=== PATIENT | female | born 2005 | race Hispanic/Latino ===

== ENCOUNTER 2024-08-31 11:23 | Emergency (ER) | payer MEDICARE, SELFPAY ==
[2024-08-31 11:29] VITALS: BP 133/88
--- NOTE | 2024-08-31 12:21 | ED.GENMED ---
History of Present Illness
General
Chief Complaint: Problems
Source: patient and other (Family member sign language interpreter)
Exam Limitations: none
Time Seen by Provider: 08/31/24 12:20
Nursing documentation reviewed up to this point in time: agreed with
History of Present Illness
History of Present Illness:
18-year-old [place] Citizen only speaking female who is obviously (appears to be about 7 or 8 months by the side of her belly) is here because she wants to know how far along she is. She has no PCP or signals collector/analyst. She has had no abdominal pain,
no vaginal bleeding or discharge.
She has given in the past and has a 2-year-old with her.
She does not know when her last period was
She has no significant past medical history
Past History
Past History
ED Past Medical History: None
ED Past Surgical History: None
Social History
Tobacco: Non-smoker
Alcohol: None
Living: with family
Employment: Not employed
Review of Systems
Review of Systems
Allergies reviewed?: Yes
All Other Systems: ROS reviewed and negative except as documented in HPI and ROS
ABD/GI: Reports other (Abdomen appears to be 7 or 8-month )
: Denies bleeding or discharge
Phy Exam
Physical Exam
Physical Exam:
GENERAL: No acute distress. A&Ox3.
CONSTITUTIONAL: Afebrile.
RESPIRATORY: Regular respirations, nonlabored, lungs clear.
CARDIOVASCULAR: Regular rate and rhythm, no murmurs, no rubs.
GI: Belly appears to be the size of a 7 to 8-month woman, nontender, normal BS
MUSCULOSKELETAL: Moves with ease. Well perfused.
SKIN: Warm, dry, pink
PSYCH: Normal mood and affect. Well kept, interactive and appropriate
NEUROLOGIC: Awake, alert and oriented. No focal neurological deficits
Course
Vital Signs
Initial and Last Documented VS:
Initial Vital Signs
Temp Pulse Resp BP Pulse Ox
98.2 F 107 18 133/88 99
08/31/24 11:29 08/31/24 11:29 08/31/24 11:29 08/31/24 11:29 08/31/24 11:29
Last Documented Vital Signs
Temp Pulse Resp BP Pulse Ox
98.2 F 107 18 133/88 99
08/31/24 11:29 08/31/24 11:29 08/31/24 11:29 08/31/24 11:29 08/31/24 11:29
Information
Weeks gestation: N/A
Location: N/A
MDM/Problems Addressed
Differential Diagnosis Includes:
normal intrauterine
MDM/Problems Addressed:
18-year-old [place] Citizen only speaking female who is obviously (appears to be about 7 or 8 months by the side of her belly) is here because she wants to know how far along she is. She has no PCP or signals collector/analyst. She has had no abdominal pain,
no vaginal bleeding or discharge.
She has given in the past and has a 2-year-old with her.
She does not know when her last period was
She has no significant past medical history
She feels the baby move.
No pain, discharge or sign of labor.
She needs care.
Patient personally escorted to the [facility] clinic by this examiner.
She spoke with someone there and was given an application to fill out.
She knows to return here if signs of delivery
*Critical Care Note
Total Time (30-74mins, 75-104mins- exclusive of procedures): Not Applicable
ED Attending Note
-
Portions of this chart may have been created with voice recognition software.� Occasional wrong word or��sound alike� substitutions may have occurred due to the inherent limitations of voice recognition software.
Discharge Plan
Departure
Patient Disposition: Home (Routine Discharge)
Date of Disposition: 08/31/24
Time of Disposition: 12:25
Patient with high blood pressure during this ER visit?: No
Condition: Good
Discharge Problem:
Prescriptions:
No Action
folic acid 400 mcg Tablet
0.4 mg PO DAILY
prenat.vits,ino,tys-rlku-pnkjg Tablet
1 tab PO DAILY
acetaminophen 325 mg Tablet
650 mg PO Q4HPRN PRN (Reason: mild pain) Qty: 0 0RF
ibuprofen 600 mg Tablet
600 mg PO Q6HPRN PRN (Reason: moderate pain/cramps) Qty: 0 0RF
Referrals:
Carlota Kori [facility] [Other] - Next open appointment
NONE,* [Family Provider] -
Activity Restrictions/Additional Instructions:
As we discussed, since you know you are and by the size of your belly probably 7-8 months, you need Obstetric care.
There is nothing to do here in the Emergency Department
Go to the [facility]
Interventions
Interventions:
*Risk Screen - Suicide Last Done: 08/31/24 12:00
*General Assessment Last Done: 08/31/24 11:29
*Neglect/Abuse Screening Last Done: 08/31/24 12:00
ED- Fall Risk Assessment Last Done: 08/31/24 12:00
*Nursing Disposition Last Done: 08/31/24 12:32
ED-Female Genitourinary Assessment Last Done: 08/31/24 12:00
Discharge Date and Time
Discharge Date/Time: 08/31/24 12:33
Print Language: KYRGYZ
== END 2024-08-31 12:33 | disposition home or self-care (01) ==
LOC: EMR 11:23
PROVIDERS: EMERGENCY PHYSICIAN Emergency Medicine
DX: Z34.83 Encounter for supervision of other normal pregnancy, third trimester (principal); Z3A.00 Weeks of gestation of pregnancy not specified
CPT/HCPCS: 99281

== ENCOUNTER 2024-09-20 00:33 | Observation (INO) | payer SELFPAY ==
[2024-09-20 00:52] VITALS: BP 132/76; BMI 28.9
[2024-09-20 01:29] LABS: Urine Albumin Negative (Neg - Trace); Urine Bilirubin Negative (Negative); Urine Character Clear (Clear); Urine Color Yellow; Urine Glucose Negative (Negative); Urine Ketone Negative (Negative); Urine Leukocyte Negative (Negative); Urine Nitrite Negative (Negative); Urine Occult Blood Negative (Negative); Urine Specific Gravity 1.015 (<1.030); Urine Urobilinogen Negative (Neg - 1+)
[2024-09-20 01:39] LABS: % Basophils 0.2 % (0-2); % Eosinophils 3.5 % (0-6); % Immature Granulocytes 0.7 % (0-0.5); % Lymphocytes 28.7 % (20.5-51.1); % Monocytes 5.3 % (1.7-9.3); % Neutrophils 61.6 % (42.2-75.2); Absolute Eosinophils 0.3 10^3/uL (0-0.7); Absolute Immature Granulocytes 0.1 10^3/uL (0-0.05); Absolute Lymphocytes 2.5 10^3/uL (1.2-3.4); Absolute Monocytes 0.5 10^3/uL (0.1-0.6); Absolute Neutrophils 5.3 10^3/uL (1.4-6.5); Hematocrit 26.7 % (37.0-47.0); Mean Corpuscular Hgb 21.3 pg (27.0-31.0); Nucleated Red Blood Cells % 0.2 %; Platelet Count 245 10^3/uL (130-400); Red Blood Cell Count 3.76 10^6/uL (4.20-5.40); Red Cell Dist. Width 16.4 % (11.5-14.5); White Blood Cell Count 8.7 10^3/uL (4.8-10.8)
[2024-09-20 01:43] LABS: ALT (SGPT) 11 U/L (0-35); AST (SGOT) 20 U/L (14-36); Albumin 3.9 g/dl (3.5-5.0); Alkaline Phosphatase 209 U/L (38-126); Blood Urea Nitrogen 10 mg/dl (7-17); Carbon Dioxide 18 mmol/L (22-30); Chloride 106 mmol/L (98-107); Estimated Creatinine Clearance > 125 ml/min; Glucose 103 mg/dl (70-99); Potassium 4.2 mmol/L (3.5-5.1); Sodium 137 mmol/L (135-145); Total Bilirubin 0.1 mg/dl (0.2-1.3); eGFR > 60.00
[2024-09-20] MEDS: LR 1000 IV (01:46)
[2024-09-20 02:07] LABS: Amphetamines Negative (Negative); Barbiturates Negative (Negative); Benzodiazepines Negative (Negative); Buprenorphine Negative (Negative); Cocaine Negative (Negative); Marijuana Negative (Negative); Methadone Negative (Negative); Methamphetamines Negative (Negative); Opiates Negative (Negative); Phencyclidine Negative (Negative); Tricyclic Antidepressants Negative (Negative)
[2024-09-20 02:37] LABS: Hepatitis B Surface Antigen Negative (Negative)
[2024-09-20 02:44] LABS: Rubella Positive
[2024-09-20 02:46] LABS: HIV Combo Negative (Negative)
[2024-09-20 02:54] LABS: Hepatitis C Antibody Negative (Negative)
[2024-09-20 08:45] LABS: 1 Hour after 50gm 89 mg/dl
[2024-09-20] MEDS: PRENATAL PLUS 1 TABLET PO (08:54)
[2024-09-20] MEDS: AFLURIA (36 mos+) 2024-2025 FORMULA 0.5 ML IM (08:55)
[2024-09-20] MEDS: ADACEL 0.5 ML IM (08:56)
--- NOTE | 2024-09-20 10:10 | CM ---
Pt presented to [facility] as r/o labor. Plan - for discharge today
CM consult - pt does not have supplies for infant
CM met with pt using retail special event associate - Lamont [phone]
Pt reports she lives in an apartment at listed address with her boyfriend, uncle and 19 month old daughter Coral Louis
Direct Care Provider for 19 month old. Boyfriend main support
Acknowledges No PNC - unsure of where to obtain care. Discussed importance of PNC
Given information in Japanese for [facility] Maternal Child VN program, [place]IC and [place] resources for Maternal-Child Programs
Discussed importance of obtaining car seat and safe place for to sleep. Per pt - looking into obtaining needs. Receptive with materials/resources given
[2024-09-20 12:38] LABS: Syphilis/T. pallidum Ab Reflex Negative (Negative)
== END 2024-09-20 10:36 | disposition home or self-care (01) ==
LOC: LDRP 00:33
PROVIDERS: ADMITTING PHYSICIAN Obstetrics & Gynecology
DX: O47.1 False labor at or after 37 completed weeks of gestation (principal); O09.33 Supervision of pregnancy with insufficient antenatal care, third trimester; Z3A.38 38 weeks gestation of pregnancy; R10.9 Unspecified abdominal pain; Z28.310 Unvaccinated for COVID-19; Z28.39 Other underimmunization status
CPT/HCPCS: 76805; 80053; 80306; 81003; 82950; 85025; 86762; 86780; 86803; 86850; 86900; 86901; 87070; 87086; 87340; 87389; 87491; 87591; 90686; 90715; G0008; G0378

== ENCOUNTER 2024-09-28 17:30 | Inpatient (IN) | payer OTHER, SELFPAY ==
[2024-09-28] MEDS: LR 1000 IV (17:30)
[2024-09-28] MEDS: FENTANYL/BUPIVACAINE 100 EPIDURAL (18:04)
[2024-09-28] MEDS: SUBLIMAZE 100 MCG EPIDURAL (18:04)
[2024-09-28] MEDS: PENICILLIN 110 UNITS IV (18:15)
[2024-09-28 18:32] LABS: % Basophils 0.2 % (0-2); % Eosinophils 1.4 % (0-6); % Immature Granulocytes 0.6 % (0-0.5); % Lymphocytes 24.1 % (20.5-51.1); % Monocytes 5.4 % (1.7-9.3); % Neutrophils 68.3 % (42.2-75.2); Absolute Eosinophils 0.2 10^3/uL (0-0.7); Absolute Immature Granulocytes 0.1 10^3/uL (0-0.05); Absolute Lymphocytes 2.5 10^3/uL (1.2-3.4); Absolute Monocytes 0.6 10^3/uL (0.1-0.6); Absolute Neutrophils 7.1 10^3/uL (1.4-6.5); Hematocrit 27.6 % (37.0-47.0); Hemoglobin 8.5 g/dL (12.0-16.0); Mean Corp Hgb Conc. 30.8 g/dL (33.0-37.0); Mean Corpuscular Hgb 21.6 pg (27.0-31.0); Mean Corpuscular Volume 70.1 fL (81.0-99.0); Mean Platelet Volume 11.5 fL (7.4-10.4); Nucleated Red Blood Cells % 0.2 %; Platelet Count 236 10^3/uL (130-400); Red Blood Cell Count 3.94 10^6/uL (4.20-5.40); Red Cell Dist. Width 17.2 % (11.5-14.5); White Blood Cell Count 10.5 10^3/uL (4.8-10.8)
[2024-09-28 18:52] VITALS: BP 138/73; BMI 29.3
[2024-09-29] MEDS: TYLENOL 650 MG PO ×3 (01:32→19:35)
[2024-09-29 05:20] LABS: Hematocrit 25.8 % (37.0-47.0); Hemoglobin 7.6 g/dL (12.0-16.0)
[2024-09-29] MEDS: PRENATAL PLUS 1 TABLET PO (08:09)
[2024-09-29] MEDS: MOTRIN 600 MG PO (08:18)
[2024-09-30] MEDS: TYLENOL 650 MG PO ×2 (04:04→12:15)
[2024-09-30] MEDS: MOTRIN 600 MG PO (04:04)
[2024-09-30] MEDS: PRENATAL PLUS 1 TABLET PO (08:31)
[2024-09-30] MEDS: ADACEL 0.5 ML IM (08:31)
[2024-09-30 14:11] LABS: Syphilis/T. pallidum Ab Reflex Negative (Negative)
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
== END 2024-09-30 16:08 | disposition home or self-care (01) | DRG 807 ==
LOC: LDRP 17:30
PROVIDERS: Student in an Organized Health Care Education/Training Program; ADMITTING PHYSICIAN Obstetrics & Gynecology
PROC: 10E0XZZ Delivery of Products of Conception, External Approach (ICD-10-PCS; 2024-09-28)
PROC: 4A1HXCZ Monitoring of Products of Conception, Cardiac Rate, External Approach (ICD-10-PCS; 2024-09-28)
PROC: 10907ZC Drainage of Amniotic Fluid, Therapeutic from Products of Conception, Via Natural or Artificial Opening (ICD-10-PCS; 2024-09-28)
PROC: 3E0234Z Introduction of Serum, Toxoid and Vaccine into Muscle, Percutaneous Approach (ICD-10-PCS; 2024-09-30)
DX: O99.824 Streptococcus B carrier state complicating childbirth (principal); Z37.0 Single live birth; Z3A.40 40 weeks gestation of pregnancy; O71.7 Obstetric hematoma of pelvis; O90.81 Anemia of the puerperium; Z23 Encounter for immunization
CPT/HCPCS: 85014; 85018; 85025; 86780; 86850; 86900; 86901; 90715